=== PATIENT | female | born 1995 | race Two or more races ===

== ENCOUNTER 2025-10-18 11:44 | Emergency (ER) | payer OTHER ==
[~2025-10-18] VITALS: Ht 160 cm; Wt 86.2 kg
[2025-10-18 12:40] LABS: PLATELET COUNT (AUTO) 278 K/uL (150-450); RED BLOOD CELL COUNT(AUTO) 5.11 MIL/uL (4.0-5.2); RED CELL DISTRIBUTION WIDTH 14.1 % (11.5-15.0); WHITE BLOOD COUNT (AUTO) 8.4 K/uL (4.3-11.0)
[2025-10-18 12:43] LABS: CALCIUM, SERUM 8.9 mg/dL (8.5-10.1); CREATININE 0.7 mg/dL (0.6-1.3); SODIUM SERUM 140.0 mmol/L (136-145); UREA NITROGEN, BLOOD 13.0 mg/dL (7-18)
[2025-10-18 12:48] LABS: INR 0.95 (0.91-1.10)
[2025-10-18 13:02] LABS: ASPARTATE AMINOTRANSFERASE 17.0 U/L (15-37); PREGNANCY TEST SERUM QUAN 334.0 mIU/mL (0-6); TOTAL PROTEIN, SERUM 7.6 g/dL (6.4-8.2)
[2025-10-18 14:03] VITALS: BP 124/72; TEMP 98.1; O2SAT 99
== END 2025-10-18 14:04 | disposition home or self-care (01) ==
LOC: ER 11:56
DX: O20.9 Hemorrhage in early pregnancy, unspecified (principal); N83.291 Other ovarian cyst, right side; I50.9 Heart failure, unspecified; R10.20 Pelvic and perineal pain unspecified side; Z88.1 Allergy status to other antibiotic agents; Z88.2 Allergy status to sulfonamides; Z88.5 Allergy status to narcotic agent; Z88.8 Allergy status to other drugs, medicaments and biological substances; Z3A.01 Less than 8 weeks gestation of pregnancy
CPT/HCPCS: 36415; 76856-TC; 80048-TC; 80076-TC; 84702-TC; 85025-TC; 85730-TC